=== PATIENT | female | born 1970 | race Caucasian/White ===

== ENCOUNTER → 2020-06-21 13:26 | Outpatient (CLI) | payer OTHER, SELFPAY ==
--- NOTE | ~2020-06-21 | MM_ITS ---
EXAMINATION: MM screening zahida BI w guy HISTORY: Screening TECHNIQUE: Craniocaudal and mediolateral oblique 3-D tomosynthesis images were obtained and synthetic 2-D images were generated. CAD analysis was submitted and interpreted. COMPARISON: Comparison to multiple prior studies sequentially, with oldest reviewed study dated 11/06. BREAST PARENCHYMAL COMPOSITION: There are scattered areas of fibroglandular density. FINDINGS: There is no evidence of suspicious mass, calcification, or architectural distortion to sugg est malignancy in either breast. There has been no suspicious interval change. IMPRESSION: 1. No mammographic evidence of malignancy. 2. Recommend routine screening mammography in one year. BI-RADS Category 1: Negative Reviewed, dictated and finalized at location A.
== END ==
PROVIDERS: PCP Family Medicine; Visit Provider Nurse Practitioner Obstetrics & Gynecology
DX: Z12.31 Encounter for screening mammogram for malignant neoplasm of breast (principal)
CPT/HCPCS: 77063; 77067

== ENCOUNTER → 2021-09-04 13:23 | Outpatient (CLI) | payer OTHER, SELFPAY ==
--- NOTE | ~2021-09-04 | MM_ITS ---
EXAMINATION: MM screening [facility] BI w guy HISTORY: Screening mammogram TECHNIQUE: Craniocaudal and mediolateral oblique 3-D tomosynthesis images were obtained and synthetic 2-D images were generated. CAD analysis was submitted and interpreted. COMPARISON: 06/21/2020, 05/04/2019, 12/30/2017 BREAST PARENCHYMAL COMPOSITION: There are scattered areas of fibroglandular density. FINDINGS: RIGHT BREAST: There is a possible mass in the middle third of the lower-outer breast best appreciated 7.5 cm from the nipple on the craniocaudal view. LEFT BREAST: There is no evidence of suspicious mass, calcification, or architectural distortion to s uggest malignancy. There has been no significant interval change. IMPRESSION: 1. Possible right breast mass 2. Additional mammographic views and possible breast ultrasound are recommended. BI-RADS Category 0: Incomplete: Needs additional imaging evaluation. Reviewed, dictated and finalized at location A. GORY DEVELOPMENT ANALYST IMPRESSION: 1. Possible right breast mass 2. Additional mammographic views and possible breast ultrasound are recommended . BI-RADS Category 0: Incomplete: Needs additional imaging evaluation.
--- NOTE | ~2021-09-04 | DEXA_ITS ---
Bone Density Report Name: FRANNY SERRANO Age: 51 Sex: Female Ethnicity: White Date of : 1970 Indication: postmenopausal; screening for osteoporosis; asthma or emphysema; hysterectomy; Referring Provider: Seth, Ciara Malloy Study: Bone densitometry was performed. Exam Date: September 04, 2021 Accession number: [id number] Bone Density: Region BMD T-score Z-score Classification AP Spine (L1-L4) 1.146 0.9 1.8 Normal Femoral Neck (Left) 1.080 2.1 3.0 Normal Total Hip (Left) 1.389 3.7 4.2 Normal Femoral Neck (Right) 1.139 2.6 3.5 Normal Total Hip (Right) 1.340 3.3 3.8 Normal Total Hip Mean 1.365 3.5 4.0 Normal World Health Organization criteria for BMD impression classify patients as: Normal (T-score at or above -1.0), Osteopenia (T-score between -1.0 and -2.5), or Osteoporosis (T-score at or below -2.5). 10-year Fracture Risk: FRAX not reported because: All T-scores for Spine Total, Hip Total, Femoral Neck at or above -1.0 Treated for osteoporosis Clinical Information Provided by Patient: Is being treated for osteoporosis Has the following medical conditions: Asthma or Emphysema, Hysterectomy Patient maximum height was 65 Menopause Age: 45 Onset of menses at age 12 Number of children 2 Impression: The patient has normal bone mass. Discussion: It is important to ask patients whether they are taking their medications and to encourage continued and appropriate compliance with their osteoporosis therapies to reduce fracture risk. It is also important to review their risk factors and encourage appropriate calcium and vitamin D intakes, exercise, fall prevention and other lifestyle measures. Follow-Up: Consider a repeat BMD and Vertebral Fracture Assessment (VFA) exam in 2 years or sooner if medically necessary, to reassess this patient's status. Reported by: [facility] on 09/04/2021 1:50:00 PM. Reviewed, dictated and finalized at location AOlivier LOPEZ
== END ==
PROVIDERS: PCP Family Medicine; Visit Provider Nurse Practitioner Obstetrics & Gynecology
DX: Z12.31 Encounter for screening mammogram for malignant neoplasm of breast (principal); R92.8 Other abnormal and inconclusive findings on diagnostic imaging of breast; Z78.0 Asymptomatic menopausal state
CPT/HCPCS: 77063; 77067; 77080

== ENCOUNTER → 2021-10-24 09:24 | Outpatient (CLI) | payer OTHER, SELFPAY ==
--- NOTE | ~2021-10-24 | MMUS_ITS ---
EXAMINATION: MM diagnostic zahida RT w guy, US breast RT limited HISTORY: Follow-up right breast asymmetry TECHNIQUE: Additional 3-D tomosynthesis images of the right breast were performed and synthetic 2-D i mages were generated. CAD analysis was submitted and interpreted. High resolution Limited right breas t ultrasound was performed. COMPARISON: Comparison to multiple prior studies sequentially, with oldest reviewed study dated 11/30/2015. BREAST PARENCHYMAL COMPOSITION: Breast composed of scattered areas of fibroglandular density FINDINGS: MAMMOGRAPHIC FINDINGS: ULTRASOUND: Complete bilateral US of all 4 quadrants of the right breast and retroareolar region was reviewed. No rmal heterogeneous echotexture without focal mass. IMPRESSION: 1. No evidence for malignancy in the right breast. 2. Routine yearly screening mammogram and regular clinical breast examination are recommended. BI-RADS Category 1: Negative Reviewed, dictated and finalized at location A. SPECIALIST IMPRESSION: 1. No evidence for malignancy in the right breast. 2. Routine yearly screening mammogram and regular clinical breast examination a re recommended. BI-RADS Category 1: Negative
== END ==
PROVIDERS: PCP Family Medicine; Visit Provider Nurse Practitioner Obstetrics & Gynecology
DX: R92.8 Other abnormal and inconclusive findings on diagnostic imaging of breast (principal)
CPT/HCPCS: 76642; 77061; 77065; G0279

== ENCOUNTER → 2023-01-15 11:58 | Outpatient (CLI) | payer OTHER, SELFPAY ==
--- NOTE | ~2023-01-15 | MM_ITS ---
EXAMINATION: MM screening [facility] BI w guy HISTORY: Screening mammogram TECHNIQUE: Craniocaudal and mediolateral oblique 3-D tomosynthesis images were obtained and synthetic 2-D images were generated. CAD analysis was submitted and interpreted. COMPARISON: 10/24/2021, 09/04/2021, 06/21/2020 BREAST PARENCHYMAL COMPOSITION: There are scattered areas of fibroglandular density. FINDINGS: No suspicious mass, calcification, or architectural distortion are identified in either blade ast to suggest malignancy. There has been no suspicious interval change. IMPRESSION: 1. No mammographic evidence of malignancy. 2. Recommend routine screening mammography in one year. BI-RADS Category 1: Negative Reviewed, dictated and finalized at location A.
== END ==
PROVIDERS: PCP Family Medicine; Visit Provider Nurse Practitioner Obstetrics & Gynecology
DX: Z12.31 Encounter for screening mammogram for malignant neoplasm of breast (principal)
CPT/HCPCS: 77063; 77067

== ENCOUNTER 2024-02-13 12:31 | Outpatient (CLI) | payer OTHER, SELFPAY ==
--- NOTE | ~2024-02-13 | MM_ITS ---
EXAMINATION: MM screening zahida BI w guy HISTORY: Screening TECHNIQUE: Craniocaudal and mediolateral oblique 3-D tomosynthesis images were obtained and synthetic 2-D images were generated. CAD analysis was submitted and interpreted. COMPARISON: Comparison to multiple prior studies sequentially, with oldest reviewed study dated 02/2020. BREAST PARENCHYMAL COMPOSITION: Not dense: There are scattered areas of fibroglandular density. FINDINGS: There is no evidence of suspicious mass, calcification, or architectural distortion to sugg est malignancy in either breast. There has been no suspicious interval change. IMPRESSION: 1. No mammographic evidence of malignancy. 2. Recommend routine screening mammography in one year. BI-RADS Category 1: Negative Reviewed, dictated and finalized at location B.
== END 2024-02-13 12:32 ==
LOC: MICIMG 12:32
PROVIDERS: PCP Nurse Practitioner Obstetrics & Gynecology; Visit Provider Nurse Practitioner Obstetrics & Gynecology
DX: Z12.31 Encounter for screening mammogram for malignant neoplasm of breast (principal)
CPT/HCPCS: 77063; 77067

== ENCOUNTER 2025-04-16 13:32 | Outpatient (CLI) | payer OTHER, SELFPAY ==
--- NOTE | ~2025-04-16 | MM_ITS ---
EXAMINATION: MM screening zahida BI w guy HISTORY: Screening TECHNIQUE: Craniocaudal and mediolateral oblique 3-D tomosynthesis images were obtained and synthetic 2-D images were generated. CAD analysis was submitted and interpreted. COMPARISON: Comparison to multiple prior studies sequentially, with oldest reviewed study dated 05/04. BREAST PARENCHYMAL COMPOSITION: Not dense: There are scattered areas of fibroglandular density. FINDINGS: There is no evidence of suspicious mass, calcification, or architectural distortion to sugg est malignancy in either breast. There has been no suspicious interval change. IMPRESSION: 1. No mammographic evidence of malignancy. 2. Recommend routine screening mammography in one year. BI-RADS Category 1: Negative Reviewed, dictated and finalized at location B.
== END 2025-04-16 13:33 | disposition home or self-care (01) ==
PROVIDERS: PCP Nurse Practitioner Family; Visit Provider Student in an Organized Health Care Education/Training Program
DX: Z12.31 Encounter for screening mammogram for malignant neoplasm of breast (principal)
CPT/HCPCS: 77063; 77067

== ENCOUNTER 2025-04-26 15:02 | Outpatient (CLI) | payer OTHER, SELFPAY ==
--- NOTE | ~2025-04-26 | XR_ITS ---
XR foot RT 2V 04/26/2025 15:51 Indication: Rheumatoid arthritis Procedure: 2 views right foot Comparison: No prior studies for comparison. Findings: Moderate osteoarthritis first MTP joint. Normal mineralization. No fracture, subluxation or dislocation. There are degenerative calcaneal enthesophytes. Impression: 1: Moderate osteoarthritis right first MTP joint. Reviewed, dictated and finalized at location A. Impression: 1: Moderate osteoarthritis right first MTP joint.
--- NOTE | ~2025-04-26 | XR_ITS ---
XR lumbar spine min 4V 04/26/2025 15:50 Indication: Rheumatoid arthritis Procedure: 5 views lumbar spine Comparison: No prior studies for comparison. Findings: Vertebral body heights are maintained. There is facet hypertrophy at L4-5 and L5-S1. There is grade 1 degenerative spondylolisthesis at L4-5. No acute fracture. There is facet hypertrophy at L 3-4, L4-5 and L5-S1. Impression: 1: Moderate lumbar spondylosis. Reviewed, dictated and finalized at location A. Impression: 1: Moderate lumbar spondylosis.
--- NOTE | ~2025-04-26 | XR_ITS ---
XR hand LT 2V 04/26/2025 15:51 Indication: Rheumatoid arthritis Procedure: 2 views left hand Comparison: 02/26/2014 Findings: There is polyarticular osteoarthritis, most advanced in the first carpometacarpal and fifth interphalangeal joints. No fracture, subluxation or erosion. No soft tissue abnormality. No foreign bodies. Impression: 1: Polyarticular osteoarthritis. Reviewed, dictated and finalized at location A. Impression: 1: Polyarticular osteoarthritis.
--- NOTE | ~2025-04-26 | XR_ITS ---
XR sacroiliac joints min 3V 04/26/2025 15:50 Indication: Rheumatoid arthritis Procedure: 3 view sacroiliac joints Comparison: No prior studies for comparison. Findings: Mild symmetric degenerative changes of the sacroiliac joints. No evidence for erosions or a nkylosis. Sacral foramen are symmetric. Impression: 1: Mild symmetric degenerative changes of the sacroiliac joints. Reviewed, dictated and finalized at location A. Impression: 1: Mild symmetric degenerative changes of the sacroiliac joints.
--- NOTE | ~2025-04-26 | XR_ITS ---
Exam: X-ray foot left 2 views TECHNIQUE: 2 images of the left foot were obtained. CLINICAL HISTORY: Rheumatoid arthritis COMPARISON: 04/12/2014 FINDINGS: Bone mineralization is within normal limits. No fracture. No dislocation. Mild joint space narrowing in the first metatarsophalangeal joint. Small plantar and posterior calcaneal spurs. Mild osteophytos is along the dorsum of the midfoot. IMPRESSION: 1. No acute bony abnormality. 2. Mild joint space narrowing in the first metatarsophalangeal joint. 3. Small plantar and posterior calcaneal spurs. Reviewed, dictated and finalized at location A.
--- NOTE | ~2025-04-26 | XR_ITS ---
XR hand RT 2V 04/26/2025 15:51 Indication: Rheumatoid arthritis Procedure: 2 views right hand Comparison: No prior studies for comparison. Findings: There is mild-moderate polyarticular osteoarthritis, most advanced at the first carpal meta carpal and fifth distal interphalangeal joints. No significant soft tissue abnormality. No foreign reshma dies. Impression: 1: Mild-moderate polyarticular osteoarthritis of the right hand. Reviewed, dictated and finalized at location A. Impression: 1: Mild-moderate polyarticular osteoarthritis of the right hand.
--- OUTSIDE RECORDS SUMMARY | 2025-04-26 15:16 | XMS_ITS | Encounter Summary ---
Author Organization [facility] Address [facility] [place] [address] Care Team Providers Care Physical Education Specialist Name Role Phone Robbie Reddy MD Primary Care Provider [phone] Encounter Details Date Type Department Care Team (Late st Contact Info) Description 02/19/2025 MEDOVENT Message Enc [facility] Medical Group Family Medicine - [place] [address] [place] [address] Robbie Reddy MD [facility] [place] [address] Phone call yesterday/ear problem Social History Tobacco Use Types Packs/Day Years Used Date Smoking Tobacco: Never Passive Smoke Exposure: Never Smokeless Tobacco: Never Alcohol Use Standard Drinks/Week Comments Not Currently 0 (1 standard drink = 0.6 oz pure alcohol) one mixed drink on my birthday maybe PHQ-2 Answer Date Recorded Patient Health Questionnaire-2 Score 0 02/10/2025 Comments No Sex and Gender Information Value Date Recorded Sex Assigned at Female 10/30/2024 12:07 PM FINANCIAL SERVICES REPRESENTATIVE Legal Sex Female 8:30 PM CDT Gender Identity Not on file Sexual Orientation Not on file documented as of this encounter Plan of Treatment Not on file documented as of this encounter Visit Diagnoses Not on filedocumented in this encounter Care Teams Physical Education Specialist Relationship Specialty Start Date End Date Robbie Reddy MD [address] [place] [address] [place] [address] PCP - General 07/26/24 documented as of this encounter
--- OUTSIDE RECORDS SUMMARY | 2025-04-26 15:16 | XMS_ITS | Encounter Summary ---
Author Organization [facility] Address [address] [place] [address] Care Team Providers Care Specialty Foods Cook Name Role Phone Jna De León MD Primary Care Provider [phone] Monica Love PA-C Primary Care Provider [phone] Robbie Reddy MD Primary Care Provider [phone] Encounter Details Date Type Department Care Team (Late st Contact Info) Description 10/30/2023 MyChart Message Enc [facility] Medical Group Family Medicine [address] [address] Jan De León MD [address] [place] [address] Hearing test consult Social History Tobacco Use Types Packs/Day Years Used Date Smoking Tobacco: Never Smokeless Tobacco: Never Alcohol Use Standard Drinks/Week Comments Not Currently 0 (1 standard drink = 0.6 oz pure alcohol) one mixed drink on my birthday maybe PHQ-2 Answer Date Recorded PHQ-2 Score - If the patient scores above 3, please move on to questions 3-9 0 06/21/2022 Comments No Sex and Gender Information Value Date Recorded Sex Assigned at Female 10/30/2024 12:07 PM PATCH DRILLER Legal Sex Female 8:30 PM CDT Gender Identity Not on file Sexual Orientation Not on file documented as of this encounter Progress Notes * Edith Oliver MA - 10/31/2023 12:01 PM CST Pt has already been seen by [facility] for ENT. She needs a 2nd opinion with an internal referral. Can you please send her referral to someone else. H DRILLER * Jan De León MD - 10/30/2023 7:55 PM CST The referral office made this referral in error. I requested an internal referral and designated it a second opinion referral meaning the referral should go to someone other than [facility]. Please contact the referral office to have this referral re-routed. H DRILLER * Jan De León MD - 10/30/2023 7:54 PM CSTFrom: Latosha Irizarry To: Dr. Jan De León Sent: 10/30/2023 10:23 AM PATCH DRILLER Subject: Hearing test consult Happy French's Day! The [facility] office called yesterday to schedule my hearing test, but that's who I went to before. Could you please suggest a different place so I can get a second opinion? Thanks! H DRILLER documented in this encounter Plan of Treatment Not on file documented as of this encounter Visit Diagnoses Not on filedocumented in this encounter Care Teams Specialty Foods Cook Relationship Specialty Start Date End Date Jan De León MD PCP - General 01/28/17 07/01/24 Monica Love PA-C [address] [place] [address] PCP - General PHYSICIAN AMUSEMENT CENTRE MANAGER 07/03/24 07/25/24 Robbie Reddy MD [address] [place] [address] PCP - General 07/26/24 documented as of this encounter
--- OUTSIDE RECORDS SUMMARY | 2025-04-26 15:16 | XMS_ITS | Encounter Summary ---
Author Organization [facility] Address [facility] [place] [address] Care Team Providers Care Real Time Operator Name Role Phone Robbie Reddy MD Primary Care Provider [phone] Encounter Details Date Type Department Care Team (Latest Contact Info) Description 04/25/2025 Scan HEALTH INFO SRVCS Scanned, Doc Med Group Social History Tobacco Use Types Packs/Day Years Used Date Smoking Tobacco: Never Passive Smoke Exposure: Never Smokeless Tobacco: Never Alcohol Use Standard Drinks/Week Comments Not Currently 0 (1 standard drink = 0.6 oz pure alcohol) one mixed drink on my birthday maybe PHQ-2 Answer Date Recorded Patient Health Questionnaire-2 Score 0 03/31/2025 Comments No Sex and Gender Information Value Date Recorded Sex Assigned at Female 10/30/2024 12:07 PM WEBLOGIC ADMINISTRATOR Legal Sex Female 8:30 PM CDT Gender Identity Not on file Sexual Orientation Not on file documented as of this encounter Plan of Treatment Not on file documented as of this encounter Visit Diagnoses Not on filedocumented in this encounter Care Teams Real Time Operator Relationship Specialty Start Date End Date Robbie Reddy MD [address] [place] [address] PCP - General 07/26/24 documented as of this encounter
--- OUTSIDE RECORDS SUMMARY | 2025-04-26 15:16 | XMS_ITS | Encounter Summary ---
Author Organization [facility] Address [address] [place] [address] Care Team Providers Care Melter Helper Name Role Phone Robbie Reddy MD Primary Care Provider [phone] Encounter Details Date Type Department Care Team (Late st Contact Info) Description 03/26/2025 Payveris Message Enc [facility] Medical Group Family Medicine - [place] [address] [place] [address] Robbie Reddy MD [address] [facility] [place] [address] FMLA paperwork Social History Tobacco Use Types Packs/Day Years Used Date Smoking Tobacco: Never Passive Smoke Exposure: Never Smokeless Tobacco: Never Alcohol Use Standard Drinks/Week Comments Not Currently 0 (1 standard drink = 0.6 oz pure alcohol) one mixed drink on my birthday maybe PHQ-2 Answer Date Recorded Patient Health Questionnaire-2 Score 0 03/16/2025 Comments No Sex and Gender Information Value Date Recorded Sex Assigned at Female 10/30/2024 12:07 PM QUALITY PROCESS ENGINEER Legal Sex Female 8:30 PM CDT Gender Identity Not on file Sexual Orientation Not on file documented as of this encounter Progress Notes * Edith Oliver MA - 03/29/2025 9:43 AM CDT Pt scheduled 03/31/25. documented in this encounter Plan of Treatment Not on file documented as of this encounter Visit Diagnoses Not on filedocumented in this encounter Care Teams Melter Helper Relationship Specialty Start Date End Date Robbie Reddy MD [address] [place] [phone] PCP - General 07/26/24 documented as of this encounter
--- OUTSIDE RECORDS SUMMARY | 2025-04-26 15:16 | XMS_ITS | Encounter Summary ---
Author Organization [facility] Address [facility] [place] [address] Care Team Providers Care Financial Project Manager Name Role Phone Robbie Reddy MD Primary Care Provider [phone] Encounter Details Date Type Department Care Team (Late st Contact Info) Description 04/26/2025 [employer] Message Enc [facility] Medical Group Family Medicine - [place] [address] [place] [address] Robbie Reddy MD [address] [place] [address] [place] [address] Insulin adjustment? Social History Tobacco Use Types Packs/Day Years [...] Sex Assigned at Female 10/30/2024 12:07 PM BREAKER BOSS Legal Sex Female 8:30 PM CDT Gender Identity Not on file Sexual Orientation Not on file documented as of this encounter Plan of Treatment Not on file documented as of this encounter Visit Diagnoses Not on filedocumented in this encounter Care Teams Financial Project Manager Relationship Specialty Start Date End Date Robbie Reddy MD [address] [place] [address] [place] [address] PCP - General 07/26/24 documented as of this encounter
--- OUTSIDE RECORDS SUMMARY | 2025-04-26 15:16 | XMS_ITS | Encounter Summary ---
Author Organization [facility] Address [address] [place] [address] Care Team Providers Care Recovery Room Nurse Name Role Phone Jan De León MD Primary Care Provider [phone] Monica Love PA-C Primary Care Provider [phone] Robbie Reddy MD Primary Care Provider [phone] Encounter Details Date Type Department Care Team (Late st Contact Info) Description 06/25/2023 StrategyEye Message Enc [facility] Medical Group Family Medicine [address] [address] [place] Provider Toenails Social History Tobacco Use Types Packs/Day Years [...] Sex Assigned at Female 10/30/2024 12:07 PM PIPE THREADER Legal Sex Female 8:30 PM CDT Gender Identity Not on file Sexual Orientation Not on file documented as of this encounter Plan of Treatment Not on file documented as of this encounter Visit Diagnoses Not on filedocumented in this encounter Care Teams Recovery Room Nurse Relationship Specialty Start Date End Date Jan De León MD PCP - General 01/28/17 07/01/24 Monica Love PA-C [address] [place] [address] PCP - General PHYSICIAN FLAT BED OPERATOR 07/03/24 07/25/24 Robbie Reddy MD [address] [facility] [place] [address] PCP - General 07/26/24 documented as of this encounter
--- OUTSIDE RECORDS SUMMARY | 2025-04-26 15:16 | XMS_ITS | Encounter Summary ---
Author Organization [facility] Address [facility] [place] [address] Care Team Providers Care Sports Medicine [place] Name Role Phone Robbie Reddy MD Primary Care Provider [phone] Encounter Details Date Type Department Care Team (Late st Contact Info) Description 04/26/2025 Materials [employer] Systems Research Message Enc [facility] Medical Group Family Medicine - [place] [address] [place] [address] Robbie Reddy MD [address] [place] [address] [place] [address] Breathing tx Social History Tobacco Use Types Packs/Day Years [...] Sex Assigned at Female 10/30/2024 12:07 PM OIL HOUSE ATTENDANT Legal Sex Female 8:30 PM CDT Gender Identity Not on file Sexual Orientation Not on file documented as of this encounter Plan of Treatment Not on file documented as of this encounter Visit Diagnoses Not on filedocumented in this encounter Care Teams Sports Medicine [place] Relationship Specialty Start Date End Date Robbie Reddy MD [address] [place] [address] [address] [place] [address] PCP - General 07/26/24 documented as of this encounter
--- OUTSIDE RECORDS SUMMARY | 2025-04-26 15:16 | XMS_ITS | Encounter Summary ---
Author Organization [facility] Address [address] [place] [address] Care Team Providers Care Calker Name Role Phone Jan De León MD Primary Care Provider [phone] Monica Love PA-C Primary Care Provider [phone] Robbie Reddy MD Primary Care Provider [phone] Encounter Details Date Type Department Care Team (Late st Contact Info) Description 07/04/2022 MyCWellntelt Message Enc [facility] Medical Group Diabetes and Endocrinology - [place] [address] [place] [address] [address] Blood Glucose Monitoring Record Social History Tobacco Use Types Packs/Day Years Used Date Smoking Tobacco: Never Smokeless Tobacco: Never Alcohol Use Standard Drinks/Week Comments Not Currently 0 (1 standard drink = 0.6 oz pure alcohol) one mixed drink on my birthday maybe PHQ-2 Answer Date Recorded PHQ-2 Score - If the patient scores above 3, please move on to questions 3-9 0 06/21/2022 Comments Unknown Sex and Gender Information Value Date Recorded Sex Assigned at Female 10/30/2024 12:07 PM LIME MIXER Legal Sex Female 8:30 PM CDT Gender Identity Not on file Sexual Orientation Not on file COVID-19 Exposure Response Date Recorded In the last 10 days, have jil u been in contact with someone who was confirmed or suspected to have Coronavirus/COVID-19? No / Unsure 06/27/2022 1:25 PM CDT documented as of this encounter Progress Notes * Hilary Armenta MA - 07/04/2022 3:40 PM CDT Pts BGM record documented in this encounter Plan of Treatment Not on file documented as of this encounter Visit Diagnoses Not on filedocumented in this encounter Care Teams Calker Relationship Specialty Start Date End Date Jan De León MD PCP - General 01/28/17 07/01/24 Monica Love, PAStefaniC [address] [place] [address] PCP - General PHYSICIAN EMERGENCY NURSE 07/03/24 07/25/24 Robbie Reddy MD [address] [facility] [place] [address] PCP - General 07/26/24 documented as of this encounter
--- OUTSIDE RECORDS SUMMARY | 2025-04-26 15:16 | XMS_ITS | Encounter Summary ---
Author Organization [facility] Address [address] [place] [address] Care Team Providers Care Note Taker Name Role Phone Jan De León MD Primary Care Provider [phone] Monica Love PA-C Primary Care Provider [phone] Robbie Reddy MD Primary Care Provider [phone] Encounter Details Date Type Department Care Team (Late st Contact Info) Description 09/11/2023 MyCmyGreekt Message Enc [facility] Medical Group Family Medicine [address] [address] Jan De León MD [address] [place] [phone] mounjaro and fenofibrate Social History Tobacco Use Types Packs/Day Years [...] Sex Assigned at Female 10/30/2024 12:07 PM 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
--- OUTSIDE RECORDS SUMMARY | 2025-04-26 15:16 | XMS_ITS | Encounter Summary ---
Author Organization [facility] Address [address] [place] [address] Care Team Providers Care Licensed Reactor Operator Name Role Phone Robbie Reddy MD Primary Care Provider [phone] Encounter Details Date Type Department Care Team (Late st Contact Info) Description 03/08/2025 Results Follow-Up [facility] Medical [facility] Family Medicine [facility] [address] [place] [address] Robbie Reddy MD [address] [facility] [place] [address] CBC W/DIFF AUTOMATED Social History Tobacco Use Types Packs/Day Years Used Date Smoking Tobacco: Never Passive Smoke Exposure: Never Smokeless Tobacco: Never Alcohol Use Standard Drinks/Week Comments Not Currently 0 (1 standard drink = 0.6 oz pure alcohol) one mixed drink on my birthday maybe PHQ-2 Answer Date Recorded Patient Health Questionnaire-2 Score 0 02/24/2025 Comments No Sex and Gender Information Value Date Recorded Sex Assigned at Female 10/30/2024 12:07 PM MANAGER OF SCHOOL Legal Sex Female 8:30 PM CDT Gender Identity Not on file Sexual Orientation Not on file documented as of this encounter Plan of Treatment Scheduled Orders Name Type Priority Associated Diagnoses Orde r Schedule CBC W/DIFF AUTOMATED Lab Routine Leukocytosis, unspecified type Expected: 03/08/2025, Expires: 03/08/2026 documented as of this encounter Visit Diagnoses Diagnosis Leukocytosis, unspecified type- Primary documented in this encounter Care Teams Licensed Reactor Operator Relationship Specialty Start Date End Date Robbie Reddy MD [address] [place] [address]. [place] [address] PCP - General 07/26/24 documented as of this encounter
--- OUTSIDE RECORDS SUMMARY | 2025-04-26 15:16 | XMS_ITS | Encounter Summary ---
Author Organization [facility] Address [address] [place] [address] Care Team Providers Care Test Consultant Name Role Phone Jan De León MD Primary Care Provider [phone] Monica Love PA-C Primary Care Provider [phone] Robbie Reddy MD Primary Care Provider [phone] Encounter Details Date Type Department Care Team (Late st Contact Info) Description 06/24/2023 MyChart Message Enc [facility] Medical Group Family Medicine [address] [address] Jan De León MD [address] [place] [address] Toe Nail Social History Tobacco Use Types Packs/Day Years [...] Sex Assigned at Female 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 Call wouldn't go through. [employer] message sent. * Jan De León MD - 06/25/2023 10:43 AM CDT I need to examine her but I am pretty sure I can manage this in our clinic. * Jan De León MD - 06/25/2023 10:43 AM CDTFrom: Latosha Irizarry To: Dr. Jan De León Sent: 06/24/2023 4:06 PM CDT Subject: Toe Nail Hi, I have an appointment with you on July 22 @ 1:00. I have mentioned before that my big toe toenails become ingrown. I've tried the various suggestions to get it to grown differently, but they don't work. My dad had toenails that literally grew inward so much, they practically met at the bottom and eventu ally had them completely removed. My pedicure person has been talking to me about having the outer edges of the nail removed back to the root and treating it so that it doesn't grow back. Is that something you can do? documented in this encounter Plan of Treatment Not on file documented as of this encounter Visit Diagnoses Not on filedocumented in this encounter Care Teams Test Consultant Relationship Specialty Start Date End Date Jan De León MD PCP - General 01/28/17 07/01/24 Monica Love PA-C [address] [place] [address] PCP - General PHYSICIAN MEDICAL RESIDENT 07/03/24 07/25/24 Robbie Reddy MD [facility] [facility] [place] [address] PCP - General 07/26/24 documented as of this encounter
--- OUTSIDE RECORDS SUMMARY | 2025-04-26 15:17 | XMS_ITS | Clinical Summary ---
Author Organization [address] Address [address] [place] [address] Care Team Providers Care Secretarial Teacher Name Role Phone Robbie Reddy MD Primary Care Provider [phone] Allergies Active Allergy Reactions Criticality Noted Date Comments Amoxicillin-Pot Clavulanate Nausea only Low 09/04/2016 Doxycycline Monohydrate Diarrhea,Stomach upset Low 07/10/2023 Sulfa (Sulfonamide Antibiotics) Rash,Itching Reaction: Rash, Itching, Medications cinnamon bark (Cinnamon) 500 mg capsule 4 capsules (2,000 mg total) Active vit C/zinc citrate/elderbe rry (ELDERBERRY IMMUNE HEALTH ORAL) Take 50 mg by mouth daily Active calcium carb/vit D3/minerals (CALTRATE 600+D PLUS MINERALS ORAL) Caltrate 600+D Plus Minerals Active omega 6-aff-uts-fish oil 1,000 (120-180) mg capsule 1 cap(s) orally 3 times a day (with meals) Active levocetirizine (XYZAL) 5 mg tablet 1 tab(s) orally once a day (in the evening); Duration: 30 day(s) 10/24/19 24 Active apple cider vinegar 600 mg capsule Take by mouth Active meclizine (ANTIVERT) 25 mg tablet Take 1 tablet (25 mg total) by mouth 3 (three) times a day as needed 03/18/20 25 Active insulin glargine (LANTUS) 100 unit/mL vial for injection 0 subcutaneously Active estradioL (Imvexxy Maintenance Pack) 10 mcg insert vaginal insert 12/21/19 22 Active lisinopriL (PRINIVIL,ZESTR IL) 2.5 mg tablet Take 1 tablet (2.5 mg total) by mouth daily Active albuterol HFA (PROVENTIL HFA,VENTOLIN HFA,PROAIR HFA) 90 mcg/actuation inhaler 08/26/[address] (ACIPHEX) 20 mg EC tablet Take 1 tablet (20 mg total) by mouth daily 02/12/20 25 Active Gemtesa 75 mg tablet 01/25/20 23 Active Mounjaro 7.5 mg/0.5 mL pen injector injection INJECT 7.5 MG INTO THE SKIN EVERY 7 DAYS. INDICATIONS: DIABETES 02/16/20 25 Active empagliflozin (Jardiance) 10 mg tablet Active azelastine (ASTELIN) 137 mcg (0.1 %) nasal spray 10/24/19 24 Active ascorbic acid (VITAMIN C) 100 mg tablet Take 1 tablet (100 mg total) by mouth daily Active lysine 500 mg tablet 1 tablet (500 mg total) Active UNABLE TO FIND HCL PRO-ZYME, ILLICIIUM SUPREME, COCCULUS INDICUS 30 Active hydroxychloroqu ine (PLAQUENIL) 200 mg tablet Take 2 tablets (400 mg total) by mouth daily 03/31/20 25 Active Active Problems Problem Noted Date Diagnosed Date Peripheral vertigo 03/31/2025 Assessment & Plan (03/31/2025 6:54 AM CDT): I suspect she probably has suffered labyrinthitis. Likely secondary to her shingles. Thankfully she has not lost any hearing with this. I am recommending that she stop the meclizine. I also recommended that she try to increase her activity as much as possible. This will help her recover more quickly. I am also going to have her schedule a VNG for further evaluation. She would like to go ahead and pursue that. Sensorineural hearing loss (SNHL) of both ears 0 03/31/2025 Assessment & Plan (03/31/2025 6:55 AM CDT): Her hearing loss is pretty mild. We talked about that. She does not notice any significant impairment. She currently is using hearing aids and is pretty happy with how they are working. I recommended continuing with the same. Type 2 diabetes mellitus 07/19/2015 Morbid obesity 07/19/2015 Hypertension 07/19/2015 Ketoacidosis 07/18/2015 Nocturia 07/18/2015 Unspecified dyspareunia (CODE) 07/18/2015 Acquired trigger finger 05/24/2014 Positive antinuclear antibody 05/24/2014 Encounters Date Type Department Care Team Description 04/22/2025 1:00 PM CDT Telemedicine [facility] Otolaryngology [address] [place] [phone] Rashard Chaparro MD Peripheral vertigo, unspecified laterality (Primary Dx) 04/08/2025 9:45 AM CDT Procedure visit [facility] Otolaryngology [address] [place] [phone] Bruna Toledo Au.D. Dizziness and giddiness (Primary Dx) 03/30/2025 10:30 AM CDT Office Visit [facility] Otolaryngology [address] [place] [phone] Rashard Chaparro MD Peripheral vertigo, unspecified laterality (Primary Dx); Sensorineural hearing loss (SNHL) of both ears 03/30/2025 10:00 AM CDT Procedure visit [facility] Otolaryngology [address] [place] [phone] Bruna Toledo Au.D. Dizziness and giddiness (Primary Dx); Sensorineural hearing loss (SNHL), bilateral 03/30/2025 Telephone [facility] Otolaryngology [address] [place] [phone] Bruna Toledo Au.D. from Last 3 Months Immunizations Immunization Administration Dates Next Due Influenza, Trivalent, Preservative Free, Intramu scular 09/16/2013 Surgical History Surgery Date Site/Laterality Comments SECTION Section - 2003,2004 (Added by TW Conv) UMBILICAL HERNIA REPAIR Umbilical Hernia Repair - 2014 (Added by BATSHEVA Conv) HYSTERECTOMY INCONTINENCE SURGERY Medical History Medical History Date Comments Ear problems Dizziness Allergies Asthma Autoimmune disease Rheumatoid arthritis (HCC) Diabetes (HCC) Hypertension GERD (gastroesophageal reflux disease) Sinusitis HL (hearing loss) Headache Sleep apnea Family History Medical History Relation Name Comments Hypertension Brother Hypertension - (Added by Conv) Cancer Father Cancer - (Added by Conv) Hypertension Father Hypertension - (Added by Conv) Diabetes type II Maternal Grandmother Typ e 2 Diabetes Mellitus - (Added by TW Conv) Arthritis Mother Family history of arthritis - (Added by Conv) Diabetes type II Other Type 2 Diab etes Mellitus - Relation: Uncle (Added by Conv) Heart disease Other Heart Disease - Relation: Uncle (Added by Conv) Cancer Paternal Grandfather Cancer - (Added by TW Conv) Heart disease Paternal Grandmother Heart Disease - (Added by Conv) Hypertension Paternal Grandmother Hyperte nsion - (Added by Conv) Stroke Paternal Grandmother Stroke Syndrome - (Added by Conv) Relation Name Status Comments Brother Father Maternal Grandmother Mother Other Paternal Grandfather Paternal Grandmother Social History Tobacco Use Types Packs/Day Years Used Date Smoking Tobacco: Never Smokeless Tobacco: Never Tobacco Cessation:Counseling Given: Not Answered Comments Unknown Sex and Gender Information Value Date Recorded Sex Assigned at Not on file 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 Gender Identity Not on file Sexual Orientation Not on file Obstetrics History Last Filed Vital Signs Vital Sign Reading Time Taken Comments Blood Pressure 140/85 07/04/2019 6:34 PM CDT Pulse 103 07/04/2019 6:34 PM CDT Temperature 36.6 C (97.9 F) 07/04/2019 6:34 PM CDT Respiratory Rate 17 03/30/2025 10:10 AM CDT Oxygen Saturation 97% 07/04/2019 6:34 PM CDT Inhaled Oxygen Concentration - - Weight 104.3 kg (230 lb) 04/22/2025 11:13 AM CDT Height 165.1 cm (5' 5) 04/22/2025 11:13 AM CDT Body Mass Index 38.27 04/22/2025 11:13 AM CDT Plan of Treatment Health Maintenance Due Date Last Done Comments Albumin Creatinine Ratio, Urine 1970 Breast Cancer Screening-Mammogram 1970 Colon Cancer Screening-Colonoscopy 1970 Depression Screening 1970 Hemoglobin A1C 1969 Hepatitis C Screening 1970 eGFR 1969 Dilated Eye Exam 1969 Foot Exam 1969 Regular Well Visit/Exam 18-64 1987 Zoster Vaccine (1 of 2) 1988 Pneumococcal vaccine <65 (2 of 2 - PCV) 02/27/2017 02/28/2016 Covid-19 Vaccine (3 - Modern a risk series) 05/08/2022 04/10/2022, 01/13/2021, 12/16/2020 Influenza Vaccine (#1) 2025 2, 09/23/2019, 09/03/2018, Additional history exists Lipid Panel 11/02/2025 11/02/2024, 04/07/2018 DTaP/Tdap/Td Vaccine (2 - Td or Tdap) 02/27/2026 02/28/2016 Hepatitis B Screening Completed 09/16/1999 Procedures Procedure Name Priority Date/Time Associated Diagnosis Comments TNI WITH LIPID PANEL Routine 04/07/2018 3:51 PM CDT from Last 3 Months or Most Recently Relevant to Health Maintenance Results * (ABNORMAL) TNI with LIPID PANEL (04/07/2018 3:51 PM CDT) Troponin I < 0.300 0.000 - 0.300 ng/mL 04/07/2018 4:20 PM T [facility] HISTORICAL RESULTS Comment: Reference using UZMA Chemiluminescence Negative: Repeat in 4-6 hours as indicated. Triglycerides 338(H) 0 - 149 mg/dL 04/07/2018 4:26 PM T [facility] HISTORICAL RESULTS Comment: LDL(measured) to follow due to Triglycerides >250 mg/dL. National Lipid Association/NCEP Guidelines: Normal < 150 mg/dL Borderline high 150-199 mg/dL High 200-499 mg/dL Very High >=500 mg/dL Cholesterol 175 0 - 199 mg/dL 04/07/2018 4:26 PM T [facility] HISTORICAL RESULTS Comment: National Lipid Association/NCEP Guidelines: Desirable < 200 mg/dL Borderline high: 200-239 mg/dL High Risk: >=240 mg/dL HDL Cholesterol 37 mg/dL 8 4:26 PM T [facility] HISTORICAL RESULTS Comment: Reference Ranges: Males: >=40 mg/dL Females: >=50 mg/dL Cholesterol/HDL Ratio 4.7 04/07/2018 4:26 PM CDT [facility] HISTORICAL RESULTS Comment: Optimal < 3.5:1 High > 5:1 04/07/2018 3:51 PM CDT 04/07/2018 3:56 PM CDT Ana Luisa Polanco HANDCREW FOREMAN LAB BLOOD ORDERABLES Final R esult [facility] HISTORICAL RESULTS from Last 3 Months or Most Recently Relevant to Health Maintenance Insurance [employer] [place] PPO Care Teams Secretarial Teacher Relationship Specialty Start Date End Date Robbie Reddy MD [address] [place] [address] [place] [address] PCP - General Family Medicine 03/12/25
--- OUTSIDE RECORDS SUMMARY | 2025-04-26 15:17 | XMS_ITS ---
Author Organization [facility] [facility] [employer] [place] ([address]) Address [address] [place] [address] Care Team Providers Care Spinner Continuous Name Role Phone Jan De León Primary Care Provider Unava ilable Brandi Yeh Unavailable [phone] Jaimee Babcock Unavailable [phone] REASON FOR VISIT ARC follow-up Encounters Encounter Location Date Provider Diagnosis [address] [place] [address] 12/30/2023 Jaimee Babcock Plan Of Treatment No Information Progress Notes * Latosha IRIZARRY LDOB:[birth year] (54 yo F)Acc No.[id number]:12/30/2023 Progress Notes Patient: Latosha KAUR Provider: Albino Babcock MD :1970 A ge:53 Y S ex:Female Date:12/30/2023 Address:[address], [place] Pcp:Jan De León Subjective: * Chief Complaints: * 1 . ARC follow-up. * Medical History: Objective: * Vitals: Assessment: Plan: * Treatment: * Billing Information: * Visit Code: * Procedure Codes: * Electronic signature of Anju Babcock MD on 04/26/2025 at 03:16 PM CDT Sign off status: Pending * Provider: Albino Babcock MD Date: 0 12/30/2023 Generated for Abraham lang/Rajan/Jayant on: 0 04/26/2025 03:16 PM CDT
--- OUTSIDE RECORDS SUMMARY | 2025-04-26 15:17 | XMS_ITS | Patient Health Record ---
Author Organization [employer] [facility] [employer] ([address]) Address [address] [place] [address] Care Team Providers Care Air Twist Operator Name Role Phone Jan De León Primary Care Provider Unava ilable Brandi Yeh Unavailable [phone] Allergies Allergen (clinical drug ingredient) Drug/Non Drug Allergy documented on EMR Reaction Allergy Type Onset Date Status DOXYCYLINE-MONO (uncoded) gi upset Allergy Active Substance with sulfonamide structure and antibacterial mechanism of action (substance) SULFA (uncoded) behavioral/men riddhi Allergy Active Substance with sulfonamide structure and antibacterial mechanism of action (substance) SULFA (uncoded) Hives Allergy Active amoxicillin Amoxicillin nausea Drug Allergy Act omar sulfamethoxazole / trimethoprim Bactrim Elevated heart rate Drug Allergy Active Reason For Referral No Information Medications Medication SIG (Take, Route, Frequency, Duration) Notes Start Date End Date Status RABEprazole Sodium 20 MG 1 tab(s) orally once a day Active PROAIR HFA 90 MCG/INH 2 PUFF(S) INHALED EVERY 6 HOURS *Please review for potential replacement for e-prescription and drug interaction check* Active Mounjaro 10 MG/0.5 ML DIRECTED SUBCUTANEOUSLY ONCE A WEEK *Please review and pick correct strength-formulat ion from [employer]pan options. If intended option is not shown, discontinue and re-order from Quick Search* Active Gemtesa 75 MG 1 tab(s) orally once a day Active VITAMIN C Active OMEGA-3 1000 mg 1 cap(s) orally 3 times a day (with meals) Active Elderberry *Please review and pick correct strength-formulat ion from [employer] options. If intended option is not shown, discontinue and re-order from Quick Search* Active Cinnamon *Please review and pick correct strength-formulat ion from [employer] options. If intended option is not shown, discontinue and re-order from Quick Search* Active Imvexxy Maintenance Pack 10 MCG 1 INS intravaginally 2 times a week Active Jardiance 10 MG 1 tab(s) orally once a day (in the morning) Active Azelastine HCl 137 MCG/SPRAY 2 spray(s) intranasally 2 times a day Active Fenofibrate 54 MG 1 tab(s) orally once a day Active CALTRATE 600 + D Act omar GEMTESA 75 mg 1 tab(s) orally once a day Active MOUNJARO 10 mg/0.5 mL as directed subcutaneously once a week Active AZELASTINE NASAL 137 mcg/inh 2 spray(s) intranasally 2 times a day; Duration: 30 day(s) 10/24/2023 Active JARDIANCE 10 mg 1 tab(s) orally once a day (in the morning) Active LEVOCETIRIZINE 5 mg 1 tab(s) orally once a day (in the evening); Duration: 30 day(s) 10/24/2023 Active IMVEXXY MAINTENANCE PACK 10 mcg 1 INS intravaginally 2 times a week Active FENOFIBRATE 54 mg 1 tab(s) orally once a day Active AZELASTINE NASAL 137 mcg/inh 2 spray(s) intranasally 2 times a day Active ALBUTEROL 90 mcg/inh 1 puff(s) inhaled 4 times a day; Duration: 30 day(s) 10/24/2023 Active CINNAMON Active ELDERBERRY Active Albuterol Sulfate 90 MCG/INH 1 PUFF(S) INHALED 4 TIMES A DAY; Duration: 30 DAY(S) *Please review and pick correct strength-formulat ion from [employer] options. If intended option is not shown, discontinue and re-order from Quick Search* 10/24/2023 Active Stuart-3 1000 MG 1 cap(s) orally 3 times a day (with meals) Active Vitamin C *Please review and pick correct strength-formulat ion from [employer] options. If intended option is not shown, discontinue and re-order from Quick Search* Active COLLAGENASE TOPICAL *Please revi ew for potential replacement for e-prescription and drug interaction check* Active Caltrate 600+D Plus Minerals *Please review and pick correct strength-formulat ion from [employer] options. If intended option is not shown, discontinue and re-order from Quick Search* Active RABEPRAZOLE 20 mg 1 tab(s) orally once a day Active Estradiol 0.5 MG/0.5 G (0.1%) 1 EA TRANSDERMALLY ONCE A DAY *Please review and pick correct strength-formulat ion from [employer] options. If intended option is not shown, discontinue and re-order from Quick Search* Active Lantus 100 UNIT/ML 0 subcutaneously 60 units Active Lisinopril 5 MG 1 tab(s) orally once a day Active Levocetirizine Dihydrochloride 5 MG 1 tab(s) orally once a day (in the evening); Duration: 30 day(s) 10/24/2023 Active Azelastine HCl 137 MCG/SPRAY 2 spray(s) intranasally 2 times a day; Duration: 30 day(s) 10/24/2023 Active LISINOPRIL 5 mg 1 tab(s) orally once a day Active LANTUS 100 units/mL 0 subcutaneously 60 units Active ESTRADIOL 0.5 mg/0.5 g (0.1%) 1 ea transdermally once a day Active Immunizations Vaccine Route Administration Date Status Comme nts NOC Pneumovax 23 Unknown 02/28/2016 Administered Portal Information NOC Tdap Unknown 02/28/2016 Administered Portal Infor mukesh Social History Tobacco Use: Social History Observation Description Date Details (start date - stop date) Never Smoker NA - NA Smoking Smart Form: Question Answer Notes Are you a: never smoker Problems Problem Type SNOMED Code ICD Code Onset Dates Problem Status W/U Status Risk Notes Problem Chronic allergic conjunctivitis (75811365) Chronic allergic conjunctivitis NOS (372.14) Active confirmed Problem Allergic rhinitis due to allergen (35276191) Allergic rhinitis due to allergen (477.8) Active confirmed Problem Chronic sinusitis (74812644) Chronic sinusitis NOS (473.9) Active confirmed Problem Wheezing (51176055) Wheezing (786.07) Active confirmed Problem Allergy to sulfonamides (33365000) HX-SULFONAMIDES ALLERGY (V14.2) Active confirmed Problem Allergic rhinitis caused by pollen (disorder) (62874400) Allergic rhinitis due to pollen (J30.1) Active confirmed Problem Allergic rhinitis caused by animal hair and dander (719319409776466) Allergic rhinitis due to animal (cat) (dog) hair and dander (J30.81) Active confirmed Problem Allergic rhinitis (73637501) Other allergic rhinitis (J30.89) Active confirmed Problem Chronic sinusitis (21898284) Chronic sinusitis, unspecified (J32.9) Active confirmed Problem Mild intermittent asthma (785181155) Mild intermittent asthma, uncomplicated (J45.20) Active confirmed Problem Chronic allergic conjunctivitis (74373461) Other chronic allergic conjunctivitis (H10.45) Active confirmed Plan Of Treatment Pending Test Test Name Order Date TETANUS ANTITOXOID ANTIBODY (EIA) 2023 HAEMOPHILUS INFLUENZAE B ANTIBODY, IGG 0 10/24/2023 Insurance Providers Payer Name Payer Address Payer Phone Subscriber Number Group Number Insured Name Patient Relationship to Insured Coverage Start Date Coverage End Date A[employer] Choice POS II [address] [place] [address] [id number] Amadou Irizarry Spouse - patient is the spouse of the insured 2 Medical (General) History Medical History History ICD Code Allergic rhinitis and conjun ctivitis - s/p immunotherapy in late 80s/early Intermittent wheezing Recurrent sinusitis/bronchitis Diabetes mellitus GERD Surgical History Surgery Date(Month/Year) C - Section 2003 & 2004 C section 02/26/2004 C section 02/23/2005 Celestine teeth extracted 1988 Ear tubes 1977 hysterectomy 01/24/2016 bladder tie up 01/24/2016 T&A 1976 Hospitalization History Reason Date(Month/Year) See surgical history
--- OUTSIDE RECORDS SUMMARY | 2025-04-26 15:17 | XMS_ITS | Encounter Summary ---
Author Organization [facility] Address [facility] [place] [address] Care Team Providers Care Operator Name Role Phone Robbie Reddy MD Primary Care Provider [phone] Encounter Details Date Type Department Care Team (Late st Contact Info) Description 11/03/2024 pMDsoft Message Enc [facility] Medical [facility] Family Medicine - [place] [address] [place] [address] Robbie Reddy MD [address] [place] [address] 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 [place] [phone] PCP - General 07/26/24 documented as of this encounter
--- OUTSIDE RECORDS SUMMARY | 2025-04-26 15:17 | XMS_ITS ---
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 Name Role Phone Jan De León Primary Care Provider Unava ilable Brandi Yeh Unavailable [phone] [facility], Provider Unavailable Unavailab le Allergies Allergen (clinical drug ingredient) Drug/Non Drug Allergy documented on EMR Reaction Allergy Type Onset Date Status DOXYCYLINE-MONO (uncoded) gi upset Allergy Active Substance with sulfonamide structure and antibacterial mechanism of action (substance) SULFA (uncoded) Hives Allergy Active amoxicillin Amoxicillin nausea Drug Allergy Act omar sulfamethoxazole / trimethoprim Bactrim Elevated heart rate Drug Allergy Active REASON FOR VISIT [facility] Encounter Medications Medication SIG (Take, Route, Frequency, Duration) Notes Start Date End Date Status Albuterol Sulfate 90 MCG/INH 1 PUFF(S) INHALED 4 TIMES A DAY; Duration: 30 DAY(S) *Please review and pick correct strength-formulat ion from [employer] options. If intended option is not shown, discontinue and re-order from Quick Search* 10/24/2023 Active Estradiol 0.5 MG/0.5 G (0.1%) 1 EA TRANSDERMALLY ONCE A DAY *Please review and pick correct strength-formulat ion from [employer] options. If intended option is not shown, discontinue and re-order from Quick Search* Active Lantus 100 UNIT/ML 0 subcutaneously 60 units Active Levocetirizine Dihydrochloride 5 MG 1 tab(s) orally once a day (in the evening); Duration: 30 day(s) 10/24/2023 Active Azelastine HCl 137 MCG/SPRAY 2 spray(s) intranasally 2 times a day; Duration: 30 day(s) 10/24/2023 Active RABEprazole Sodium 20 MG 1 tab(s) orally once a day Active PROAIR HFA 90 MCG/INH 2 PUFF(S) INHALED EVERY 6 HOURS *Please review for potential replacement for e-prescription and drug interaction check* Active Mounjaro 10 MG/0.5 ML DIRECTED SUBCUTANEOUSLY ONCE A WEEK *Please review and pick correct strength-formulat ion from [employer] options. If intended option is not shown, discontinue and re-order from Quick Search* Active Gemtesa 75 MG 1 tab(s) orally once a day Active Lisinopril 5 MG 1 tab(s) orally once a day Active Cinnamon *Please review and pick correct strength-formulat ion from [employer] options. If intended option is not shown, discontinue and re-order from Quick Search* Active Imvexxy Maintenance Pack 10 MCG 1 INS intravaginally 2 times a week Active Jardiance 10 MG 1 tab(s) orally once a day (in the morning) Active Azelastine HCl 137 MCG/SPRAY 2 spray(s) intranasally 2 times a day Active Fenofibrate 54 MG 1 tab(s) orally once a day Active Wolcott-3 1000 MG 1 cap(s) orally 3 times a day (with meals) Active Vitamin C *Please review and pick correct strength-formulat ion from [employer] options. If intended option is not shown, discontinue and re-order from Quick Search* Active COLLAGENASE TOPICAL *Please revi ew for potential replacement for e-prescription and drug interaction check* Active Caltrate 600+D Plus Minerals *Please review and pick correct strength-formulat ion from [employer] options. If intended option is not shown, discontinue and re-order from Quick Search* Active Elderberry *Please review and pick correct strength-formulat ion from [employer] options. If intended option is not shown, discontinue and re-order from Quick Search* Active Encounters Encounter Location Date Provider Diagnosis [facility] - [facility] [place] [address] 02/29/2024 Provider ZZ-Migration Allergic rhinitis due to pollen J30.1 and Mild intermittent asthma, uncomplicated J45.20 Assessments Encounter Date Diagnosis (ICD Code) Assessment Notes Treatment Notes Treatment Clinical Notes Section Notes 02/29/2024 Allergic rhinitis due to pollen (ICD-10 - J30.1) 02/29/2024 Mild intermittent asthma, uncomplicated (ICD-10 - J45.20) Plan Of Treatment Medication Medication Name Sig Start Date Stop Date Notes Albuterol Sulfate 90 MCG/INH 1 PUFF(S) INHALED 4 TIMES A DAY; Duration: 30 DAY(S) 10/24/2023 *Please review and pick correct strength-formulatio n from [employer] options. If intended option is not shown, discontinue and re-order from Quick Search* Levocetirizine Dihydrochloride 5 MG 1 tab(s) orally once a day (in the evening); Duration: 30 day(s) 10/24/2023 Azelastine HCl 137 MCG/SPRAY 2 spray(s) intranasally 2 times a day; Duration: 30 day(s) 10/24/2023 Progress Notes * Bailey IRIZARRY LDOB:[birth year] (54 yo F)Acc No.[id number]:02/29/2024 Patient: Bailey KAUR Provider: Gama Carr :1970 A ge:53 Y S ex:Female Date:02/29/2024 [id number] Pcp:Jan De León Subjective: * Chief Complaints: * 1 . [facility] En[facility]. * Medical History: * Medications: T aking COLLAGENASE TOPICAL , Notes to Pharmacist: *Please review for potential replacement for e-prescription and drug interaction check*, Taking Wolcott-3 1000 MG Capsule 1 cap(s) orally 3 times a day (with meals) , Taking Vitamin C , Notes to Pharmacist: *Please review and pick correct strength-formulation from [employer] options. If intended option is not shown, discontinue and re-order from Quick Search*, Taking Caltrate 600+D Plus Minerals , Notes to Pharmacist: *Please review and pick correct strength-formulation from [employer] options. If intended option is not shown, discontinue and re-order from Quick Search*, Taking Elderberry , Notes to Pharmacist: *Please review and pick correct strength-formulation from [employer] options. If intended option is not shown, discontinue and re-order from Quick Search*, Taking Cinnamon , Notes to Pharmacist: *Please review and pick correct strength-formulation from [employer] options. If intended option is not shown, discontinue and re-order from Quick Search*, Taking Azelastine HCl 137 MCG/SPRAY Solution 2 spray(s) intranasally 2 times a day , Taking Fenofibrate 54 MG Tablet 1 tab(s) orally once a day , Taking Imvexxy Maintenance Pack 10 MCG Insert 1 INS intravaginally 2 times a week , Taking Jardiance 10 MG Tablet 1 tab(s) orally once a day (in the morning) , Taking Mounjaro 10 MG/0.5 ML SOLUTION DIRECTED SUBCUTANEOUSLY ONCE A WEEK , Notes to Pharmacist: *Please review and pick correct strength-formulation from [employer] options. If intended option is not shown, discontinue and re-order from Quick Search*, Taking Gemtesa 75 MG Tablet 1 tab(s) orally once a day , Taking RABEprazole Sodium 20 MG Tablet Delayed Release 1 tab(s) orally once a day , Taking PROAIR HFA 90 MCG/INH AEROSOL 2 PUFF(S) INHALED EVERY 6 HOURS , Notes to Pharmacist: *Please review for potential replacement for e-prescription and drug interaction check*, Taking Lisinopril 5 MG Tablet 1 tab(s) orally once a day , Taking Estradiol 0.5 MG/0.5 G (0.1%) GEL 1 EA TRANSDERMALLY ONCE A DAY , Notes to Pharmacist: *Please review and pick correct strength- formulation from [employer] options. If intended option is not shown, discontinue and re-order from Quick Search*, Taking Lantus 100 UNIT/ML Solution 0 subcutaneously , Notes to Pharmacist: 60 units * Allergies: S ULFA: Hives - Allergy, Bactrim: Elevated heart rate - Side Effects, DOXYCYLINE- MONO: gi upset, Amoxicillin: nausea. Objective: * Vitals: Assessment: * Assessment: 1. A llergic rhinitis due to pollen - J30.1 2 . M ild intermittent asthma, uncomplicated - J45.20 Plan: * Treatment: 2. M ild intermittent asthma, uncomplicated Start Albuterol Sulfate AEROSOL WITH ADAPTER, 90 MCG/INH, 1 PUFF(S), INHALED, 4 TIMES A DAY, 30 DAY(S), Notes to Pharmacist: *Please review and pick correct strength-formulation from [employer] options. If intended option is not shown, discontinue and re-order from Quick Search*. * Billing Information: * Visit Code: * Procedure Codes: * Electronic signature of Jared SETH-Migration on 04/26/2025 at 03:17 PM CDT Sign off status: Pending * Provider: Gama an Migration Date: 0 02/29/2024 Generated for Abraham lang/Rajan/Markitting on: 0 04/26/2025 03:17 PM CDT
--- OUTSIDE RECORDS SUMMARY | 2025-04-26 15:17 | XMS_ITS | Clinical Summary ---
Author Organization [facility] Address [address] [place] [address] Care Team Providers Care Hr Internship Name Role Phone Robbie Reddy MD Primary Care Provider [phone] Allergies Active Allergy Reactions Criticality Noted Date Comments Amoxicillin-Pot Clavulanate Nausea Only Low 09/04/2016 Doxycycline Monohydrate Diarrhea,GI Upset Low 07/10 Statins GI Upset Medium 07/27/2024 Sulfa Antibiotics Other (see comment) Low 2 Affects her mentally. Sulfamethoxazole-Trimet hoprim Tachycardia 02/10/2025 Medications estradiol 0.5 MG tablet Take 2 tablets (1 mg total) by mouth daily. 016 Active NAPROXEN 500 MG tabletIndications: Meralgia paresthetica, bilateral lower limbs TAKE 1 TABLET EVERY 12 HOURS NEEDED FOR HEADACHE 60 tablet 3 019 Active ULTRATRAK PRO TEST test strip USE 2 STRIPS DAILY 020 Active Estradiol (IMVEXXY MAINTENANCE PACK) 10 MCG INSERT 022 Active Misc Natural Products (APPLE CIDER VINEGAR DIET OR) 1877 mg take 3 tablets daily Active GEMTESA 75 MG tablet 023 Active nystatin-triamcino lone (MYCOLOG) ointment as needed. Active PROAIR HFA 108 (90 Base) MCG/ACT inhalerIndications :Allergic rhinitis INHALE TWO PUFFS BY MOUTH 4 TIMES A DAY NEEDED 8.5 g 023 Active AZELASTINE 137 MCG/SPRAY nasal sprayIndications:A llergic rhinitis with postnasal drip USE 1 SPRAY IN EACH NOSTRILTWICE DAILY DIRECTED 30 mL 2 024 Active Ascorbic Acid (VITAMIN C) 100 MG tablet Take 1 tablet (100 mg total) by mouth daily. Dose unknown Active Calcium Carbonate-Vit D-Min (CALCIUM 1200 OR) Take 1 tablet by mouth daily. Dose unknown Active Levocetirizine Dihydrochloride (XYZAL ALLERGY 24HR OR) Take 1 tablet by mouth daily. Active fluocinonide (LIDEX) 0.05 % external solutionIndication s:Acute eczematoid otitis externa of right ear Apply topically 2 (two) times daily. 20 mL 1 024 Active Cinnamon 500 MG capsule Cinnamon Active Elderberry 500 MG Cap Elderberry Active fish oil (OMEGA-3 FATTY ACID) 1000 MG Cap capsule 1 cap(s) orally 3 times a day (with meals) Active lisinopril (PRINIVIL) 2.5 MG tabletIndications: Essential hypertension Take 1 tablet (2.5 mg total) by mouth every evening. 90 tablet 3 024 Active Prodigy Twist Top Lancets 28G MiscIndications:Ty pe 2 diabetes mellitus with hyperglycemia, with long-term current use of insulin ([facility] HHS/[facility]) 1 Lancet by Does not apply route 2 (two) times a day. 100 each 5 024 Active Glucose Blood test stripIndications:T ype 2 diabetes mellitus with hyperglycemia, with long-term current use of insulin ([facility] HHS/HCC) 1 strip by Other route 2 (two) times a day. Use as instructed 200 strip 5 024 Active acyclovir (ZOVIRAX) 5 % creamIndications:H erpes Use 1/2 inch ribbon of ointment per 4 square inches of surface area 5 g 3 025 Active Turmeric 5-1000 MG Cap Active insulin glargine (LANTUS SOLOSTAR) 100 UNIT/ML injection (PEN)Indications:T ype 2 diabetes mellitus with hyperglycemia, with long-term current use of insulin ([facility] HHS/HCC) Inject 22 Units into the skin 2 (two) times daily. 15 mL 2 025 Active empagliflozin (JARDIANCE) 25 MG tabletIndications: Type 2 diabetes mellitus with hyperglycemia, with long-term current use of insulin ([facility]) Take 1 tablet (25 mg total) by mouth daily. 90 tablet 3 025 Active Insulin Pen Needle (BD PEN NEEDLE ANTONIO 2ND GEN) 32G X 4 MM MiscIndications:Ty pe 2 diabetes mellitus with hyperglycemia, with long-term current use of insulin ([facility]) Use to inject insulin BID. 100 each 3 025 Active ezetimibe (ZETIA) 10 MG tabletIndications: Dyslipidemia Take 1 tablet (10 mg total) by mouth daily. 90 tablet 3 025 Active tirzepatide (MOUNJARO) 7.5 MG/0.5ML injectionIndicatio ns:Type 2 diabetes mellitus with hyperglycemia, with long-term current use of insulin ([facility]) INJECT 7.5 MG INTO THE SKIN ONCE A WEEK. INDICATIONS: DIABETES 2 mL 2 025 Active ondansetron (ZOFRAN) 4 MG tabletIndications: Gastroesophageal reflux disease, unspecified whether esophagitis present Take 1 tablet (4 mg total) by mouth every 8 (eight) hours as needed for Nausea. 20 tablet 3 025 Active fluconazole (DIFLUCAN) 150 MG tabletIndications: Yeast vaginitis Take 1 tablet q72h x 2 doses. 2 tablet 025 Active RABEprazole EC (ACIPHEX) 20 MG tabletIndications: Gastroesophageal reflux disease, unspecified whether esophagitis present TAKE 1 TABLET DAILY 90 tablet 025 Active fluconazole (DIFLUCAN) 150 MG tabletIndications: Yeast vaginitis Take 1 tablet q72h x 2 doses. 2 tablet 025 2024 Discontinued(R eorder) RABEprazole EC (ACIPHEX) 20 MG tabletIndications: Gastroesophageal reflux disease, unspecified whether esophagitis present Take 1 tablet (20 mg total) by mouth daily. 30 tablet 2 025 2024 Discontinued methylPREDNISolone , HEYDI, (MEDROL DOSEPAK) 4 MG tabletIndications: Postherpetic neuralgia 6 TABLETS ON DAY ONE, 5 TABLETS DAY TWO, 4 TABLETS DAY THREE, 3 TABLETS DAY FOUR, 2 TABLETS DAY FIVE, AND 1 TABLET DAY SIX 1 each 025 2024 Discontinued meclizine (ANTIVERT) 25 MG tabletIndications: Vertigo TAKE 1 TABLET (25 MG TOTAL) BY MOUTH 3 (THREE) TIMES DAILY NEEDED FOR NAUSEA OR DIZZINESS. 30 tablet 1 025 2024 Discontinued azithromycin (ZITHROMAX) 250 MG tabletIndications: Sinus congestion Take 2 tablets on day #1, then 1 tablet daily x 4 days. 6 tablet 025 2024 valACYclovir (VALTREX) 1 g tabletIndications: Herpes zoster without complication Take 1 tablet (1,000 mg total) by mouth 3 (three) times daily for 7 days. 21 tablet 025 2024 predniSONE (DELTASONE) 20 MG tabletIndications: Herpes zoster without complication Take 2 tablets (40 mg total) by mouth daily for 5 days. 10 tablet 025 2024 Active Problems Problem Noted Date Diagnosed Date Sinus congestion 03/31/2025 Acute otitis media, unspecified otitis media typ e 02/24/2025 Postherpetic neuralgia 02/11/2025 Vertigo 02/11/2025 Herpes zoster without complication 02/10/2025 Yeast vaginitis 11/24/2024 Leukocytosis, unspecified type 11/02/2024 Positive colorectal cancer screening using Colog uard test 08/18/2024 Ingrowing toenail 01/21/2024 Joint pain 12/26/2022 Atrophic vulva 12/20/2021 Mixed stress and urge urinary incontinence 03/03 Type 2 diabetes mellitus wit h hyperglycemia, with long-term current use of insulin (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 Overview (05/09/2023): Benign neoplasm of vulva;Recorded Elsewhere: No Location: [facility] Source: EHR Chronic: N Practice ID: [id number] Billable Time: 01:45:00 PM Essential hypertension 06/18/2017 Class 3 severe obesity due t o excess calories with serious comorbidity and body mass index (BMI) of 40.0 to 44.9 in adult 01/08/2017 Menopause present 03/06/2016 Overview (05/09/2023): vasomotor sx;Recorded Elsewhere: No Location: [facility] Source: EHR Chronic: N Practice ID: [id number] Billable Time: 01:45:00 PM Polyp of corpus uteri 11/22/2015 Overview (05/09/2023): Polyp of corpus uteri;Practice ID: [id number] Unspecified dyspareunia (CODE) 07/18/2015 ADRIENNE (obstructive sleep apnea) 07/07/2015 Overview (09/03/2018): Transitioned From: Snoring Insomnia 03/07/2015 Vitamin D deficiency 02/22/2015 Acquired trigger finger 05/24/2014 Positive antinuclear antibody 05/24/2014 Overactive bladder 02/26/2014 Dyslipidemia 08/31/2013 Allergic rhinitis with postnasal drip 08/28/2013 Esophageal reflux 08/28/2013 Resolved Problems Problem Noted Date Diagnosed Date Resolved Date Statin intolerance 03/03/2021 Acute vulvitis 01/29/2018 12/05/2023 Overview (05/09/2023): Vulvitis;Recorded Elsewhere: No Location: [facility] Source: EHR Chronic: N Practice ID: [id number] Billable Time: 02:30:00 PM Pain of female genitalia 11/02/2015 Overview (05/09/2023): Dysmenorrhea, unspecified;Recorded Elsewhere: No Location: [facility] Source: EHR Chronic: N Practice ID: [id number] Billable Time: 11:00:00 AM test negative 11/02/2013 03/2 09/2023 Overview (05/09/2023): examination or test, negative result;Recorded Elsewhere: No Location: [facility] Source: EHR Chronic: N Practice ID: [id number] Billable Time: 11:15:00 AM Encounters Date Type Department Care Team Description 04/26/2025 MyChart Message Enc [address] [address] Robbie Reddy MD Breathing tx 04/26/2025 MyChart Message Enc [address] [address] Robbie Reddy MD Insulin adjustment? 04/25/2025 Scan [facility] Scanned, [facility] 04/05/2025 MyChart Message Enc [address] [address] Robbie Reddy MD return of shingles? 04/01/2025 Scan [facility] Scanned, [facility] 03/31/2025 9:40 AM CDT Office Visit [address] [address] Robbie Reddy MD Other (FMLA paperwork) 03/31/2025 Scan [facility] Scanned, [facility] 03/31/2025 Travel 03/26/2025 MyChart Message Enc [address] [address] Robbie Reddy MD FMLA paperwork 03/16/2025 1:20 PM CDT Office Visit [address] [address] Jessi Henry MD Sinus Problem 03/16/2025 Travel 03/15/2025 Scan [facility] Scanned, [facility] 03/08/2025 2:00 PM CDT Laboratory Only [address] [address] Robbie Reddy MD 03/08/2025 Results Follow-Up [address] [address] Robbie Reddy MD CBC W/DIFF AUTOMATED 03/08/2025 Travel 03/01/2025 MyChart Message Enc [address] [address] Robbie Reddy MD RA flare up 02/24/2025 11:40 AM CDT Office Visit [address] [address] Robbie Reddy MD Dizziness (Starting February 05.); Earache (bilateral) 02/24/2025 Travel 02/19/2025 MyChart Message Enc [address] [address] Robbie Reddy MD Phone call yesterday/ear problem 02/18/2025 Scan [facility] Scanned, [facility] 02/18/[address] [address] Robbie Reddy MD Question 02/11/2025 MyChart Message Enc [address] [address] Robbie Reddy MD vertigo 02/11/[address] [address] Robbie Reddy MD Dizziness 02/10/2025 10:00 AM CDT Office Visit [address] [place] [address] Robbie Reddy MD Diabetes; Hypertension 02/10/2025 Travel 02/05/2025 11:55 AM CDT - 02/05/2025 12:44 PM CDT Hospital Encounter [facility] [address] [place] [address] Miya Goodwin DO Skin Problem; Dizziness Discharge Disposition: Home or Self Care (Routine Discharge) 02/05/2025 Travel 02/05/2025 Telephone [facility] - [place] [address] [place] [address] Robbie Reddy MD Information from Last 3 Months Immunizations Immunization Administration Dates Next Due Fluzone 6 Months+ Quad (0.5 mL Prefilled Syringe) 06/27/2022,09/23/2019,09/03/2018 Hepatitis B (Generic: Adult) 09/16/1999 Influenza (Generic) 09/16/2013 Influenza Adult (Generic) 09/03/2018,10/22/2017, 05/30/2016 MODERNA COVID-19 (12+) MRNA, LNP-S, PF, 100 MCG/ 0.5 ML DOSE 01/13/2021,12/16/2020 MODERNA COVID-19 (PRECISION GRINDER EXTERNAL ZAINA JIMMY), MRNA, LNP-S, PF, 50 MCG/ 0.25 ML DOSE 04/10/2022 Pneumococcal (Pneumovax 23) 02/28/2016 Tdap (Boostrix) 02/28/2016 Family History Medical History Relation Comments Hypertension Brother 1 Hypertension Brother 2 Cancer Father Mantel Cell Lymp wendi/Thyroid Diabetes Father Follicular Thyroid Carcinoma Father Not medullary. Able to take GLP-1 Thyroid Father Arthritis Maternal Grandmother Diabetes Maternal Grandmother Diabetes Maternal Uncle 1 Diabetes Maternal Uncle 2 Diabetes Maternal Uncle 3 Diabetes Maternal Uncle 4 Heart Disease Maternal Uncle 5 Diabetes Maternal Uncle 6 Heart Disease Maternal Uncle 7 Hypertension Maternal Uncle 8 Arthritis Mother Asthma Mother Miscarriages / Stillbirths Mother Cancer Paternal Grandfather prostate Early Paternal Grandmother stroke Stroke Paternal Grandmother Relation Status Comments Brother 1 Brother 2 Alive Father Maternal Grandmother Alive Maternal Uncle 1 Maternal Uncle 2 Maternal Uncle 3 Maternal Uncle 4 Maternal Uncle 5 Maternal Uncle 6 Alive Maternal Uncle 7 Alive Maternal Uncle 8 Alive Mother Alive Paternal Grandfather Alive Paternal Grandmother Alive Social History Tobacco Use Types Packs/Day Years Used Date Smoking Tobacco: Never Passive Smoke Exposure: Never Smokeless Tobacco: Never Tobacco Cessation:Counseling Given: Yes Alcohol Use Standard Drinks/Week Comments Not Currently 0 (1 standard drink = 0.6 oz pure alcohol) one mixed drink on my birthday maybe PHQ-2 Answer Date Recorded Patient Health Questionnaire-2 Score 0 03/31/2025 Comments No Sex and Gender Information Value Date Recorded Sex Assigned at Female 10/30/2024 12:07 PM CORPORATE WELLNESS COORDINATOR Legal Sex Female 8:30 PM CDT Gender Identity Not on file Sexual Orientation Not on file Last Filed Vital Signs Vital Sign Reading Time Taken Comments Blood Pressure 138/80 03/31/2025 9:38 AM CDT Pulse 76 03/31/2025 9:38 AM CDT Temperature 36.5 C (97.7 F) 03/31/2025 9:38 AM CDT Respiratory Rate 18 03/31/2025 9:38 AM CDT Oxygen Saturation 96% 03/31/2025 9:38 AM CDT Inhaled Oxygen Concentration - - Weight 105.2 kg (232 lb) 03/31/2025 9:38 AM CDT Height 165.1 cm (5' 5) 02/24/2025 11:46 AM CDT Body Mass Index 38.61 02/24/2025 11:46 AM CDT Plan of Treatment Health Maintenance Due Date Last Done Comments Zoster Vaccines (1 of 2) 1988 Pneumococcal Vaccine: 50+ Years (2 of 2 - PCV) 02/27/2017 02/28/2016 Annual Physical 07/27/2025 07/27/2024, 02/2023, 03/27/2022, Additional history exists COVID-19 Vaccine ( season) 2025 04/10/2022, 01/13/2021, 12/16/2020 Postponed from 05/17/2024 (Patient Refused) Hepatitis B Vaccines (2 of 3 - 19+ 3-dose series) 07/27/2025 09/16/1999 Postponed from 10/14/1999 (Patient/Guardian Refusal) Hemoglobin A1C 08/13/2025 02/10/2025, 10/18, 07/27/2024, Additional history exists Kidney Health Evaluation 11/02/2025 11/02/2024 Lipid Panel 11/02/2025 11/02/2024, 0312/2023, 10/18/2023, Additional history exists Diabetes: Retinopathy Eye Exam 12/02/2025 12/02/2024, 11/27/2023, 11/21/2022, Additional history exists Mammogram Screening 02/12/2026 02/13/2024, 02/13/2024, 01/15/2023, Additional history exists DTaP, Tdap and Td Vaccines (2 - Td or Tdap) 02/27/2026 02/28/2016 Colorectal Cancer Screening Colonoscopy (10 Years) 01/13/2030 01/13/2025 Hepatitis C Completed 10/27/2020 Colorectal Cancer Screening FIT-DNA (3 Years) Discontinued 08/05/2024, 08/05/2024 PHQ-2 ([place]) Completed 03/31/2025 Meningococcal B Vaccine Aged Out No l onger eligible based on patient's age to complete this topic Meningococcal Vaccine Aged Out No julia cuate eligible based on patient's age to complete this topic RSV Immunizations Under 20 Months Aged Out No longer eligible based on patient's age to complete this topic Procedures Procedure Name Priority Date/Time Associated Diagnosis Comments CBC W/DIFF AUTOMATED Routine 03/08/2025 1:57 PM CDT Neutrophilia COLLECTION VENOUS BLOOD VENIPUNCTURE Routine 03/08/2025 Neutrophilia COLLECT.CAPILLARY (FNGR,HEEL,EAR) Routine 02/10/2025 10:19 AM CDT Type 2 diabetes mellitus with hyperglycemia, with long-term current use of insulin ([facility]) HEMOGLOBIN, GLYCOSYLATED Routine 02/10/2025 Type 2 diabetes mellitus with hyperglycemia, with long-term current use of insulin ([facility]) ECG 12-LEAD STAT 02/05/2025 12:27 PM CDT DIABETIC RETINOPATHY EXAM (NEGATIVE)(SCAN ORDER) Routine 12/02/2024 LIPID PANEL Routine 11/02/2024 11:01 AM CORPORATE WELLNESS COORDINATOR Dyslipidemia COLOGUARD (EXACT SCIENCE) Routine 08/05/2024 9:44 AM CORPORATE WELLNESS COORDINATOR Screening for malignant neoplasm of colon MAMMOGRAM GENERIC (SCAN ORDER) 02/13/2024 HEPATITIS C ANTIBODY W/RFX TO HCV RNA Routine 10/27/2020 10:01 AM CORPORATE WELLNESS COORDINATOR Need for hepatitis C screening test from Last 3 Months or Most Recently Relevant to Health Maintenance Results * (ABNORMAL) CBC W/DIFF AUTOMATED (03/08/2025 1:57 PM CDT) WBC 12.26(H) 4.00 - 10.80 x10'3/uL 03/08/2025 8:07 PM CDT [facility] RBC 5.18 4.10 - 5.40 x10'6/uL 03/08/2025 8:07 PM CDT [facility] HGB 15.9 12.0 - 16.0 G/DL 03/08/2025 8:07 PM CDT [facility] HCT 45.4 36.0 - 47.0 % 03/08/2025 8:07 PM CDT [facility] MCV 87.6 78.0 - 100.0 FL 03/08/2025 8:07 PM CDT [facility] MCH 30.7 27.0 - 31.0 PG 03/08/2025 8:07 PM CDT [facility] MCHC 35.0 33.0 - 36.0 G/DL 03/08/2025 8:07 PM CDT [facility] RDW 11.9 11.5 - 14.5 % 03/08/2025 8:07 PM CDT [facility] PLT 257 150 - 350 x10'3/uL 03/08/2025 8:07 PM CDT [facility] MPV 9.7 7.4 - 10.4 FL 03/08/2025 8:07 PM CDT [facility] DIFFERENTIAL TYPE AUTOMATED DIFFERENTIAL 03/08/2025 8:07 PM CDT [facility] NEUTROPHILS % 67.7 % 03/08/2025 8:07 PM CDT [facility] LYMPHOCYTES % 24.4 % 03/08/2025 8:07 PM CDT [facility] MONOCYTES % 6.4 % 03/08/2025 8:07 PM CDT [facility] EOSINOPHILS % 0.9 % 03/08/2025 8:07 PM CDT [facility] BASOPHILS % 0.4 % 03/08/2025 8:07 PM CDT [facility] IMMATURE GRANS % 0.2 % 03/08/2025 8:07 PM CDT [facility] ABS. NEUTROPHILS 8.30 1.60 - 8.30 x10'3/uL 03/08/2025 8:07 PM CDT [facility] ABS. LYMPHOCYTES 2.99 0.80 - 4.70 x10'3/uL 03/08/2025 8:07 PM CDT [facility] ABS. MONOCYTES 0.79 0.00 - 1.50 x10'3/uL 03/08/2025 8:07 PM CDT [facility] ABS. EOSINOPHILS 0.11 0.00 - 0.40 x10'3/uL 03/08/2025 8:07 PM CDT [facility] ABS. BASOPHILS 0.05 0.00 - 0.20 x10'3/uL 03/08/2025 8:07 PM CDT [facility] ABS. IMMATURE GRANULOCYTES 0.02 0.00 - 0.03 x10'3/uL 03/08/2025 8:07 PM CDT [facility] 03/08/2025 1:57 PM CDT us Robbie Reddy MD LABORATORY Final Result [facility] [place] [address] [place] [address], [place] [phone] * COLLECTION VENOUS BLOOD VENIPUNCTURE (03/08/2025) us Robbie Reddy MD PROCEDURES Final Result * (ABNORMAL) HEMOGLOBIN, GLYCOSYLATED (02/10/2025) HGB A1C 7.1(A) % [facility] 02/10/2025 us Robbie Reddy MD LABORATORY Final Result Performing Organization Address City/[facility] Co de Phone Number [facility] [address] [place] [address], [place] [phone] * ECG 12 lead (02/05/2025 12:27 PM CDT) 02/05/2025 12:2 7 PM CDT Narrative [facility] ([facility]) RAD - 02/05/2025 6:50 PM [address] Test Date: 2025-02-05 Pat Name: FRANNY IRIZARRY Department: 41 Room: [place] [address] 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1970 Requested By: MIYA GOODWIN Order Number: [id number] Reading MD: Dennis Simmons Measurements Intervals [place] Rate: 70 P: -7 MT: 134 QRS: 26 QRSD: 90 T: 39 QT: 374 QTc: 406 Interpretive Statements SINUS RHYTHM No previous ECG available for comparison Procedure Note Dennis Simmons MD - 02/05/2025 [address] Test Date: 2025-02-05 Pat Name: FRANNY IRIZARRY Department: 41 Room: [place] [address] 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1970 Requested By: MIYA GOODWIN Order Number: [id number] Reading MD: Dennis Simmons Measurements Intervals [place] Rate: 70 P: -7 MT: 134 QRS: 26 QRSD: 90 T: 39 QT: 374 QTc: 406 Interpretive Statements SINUS RHYTHM No previous ECG available for comparison us Miya Goodwin DO ECG ORDERABLES Final Result Performing Organization Address City/[facility]/ZIP Co de Phone Number [facility] ([place]) RAD * DIABETIC RETINOPATHY EXAM (NEGATIVE) (12/02/2024) us [facility] Scanned SCANNING Final Resu lt Performing Organization Address City/State/[facility] Co de Phone Number HS ONBASE * (ABNORMAL) LIPID PANEL (11/02/2024 11:01 AM CORPORATE WELLNESS COORDINATOR) CHOLESTEROL 201(H) <200 MG/DL 11/03/2024 11:[address] [facility] [place] TRIGLYCERIDES 167(H) <150 MG/DL 11/03/2024 11:01 AM CORPORATE WELLNESS COORDINATOR [facility] [place] HDL 46 >40 MG/DL 11/03/2024 11:01 AM CORPORATE WELLNESS COORDINATOR [facility] [place], [place] LDL-C 122(H) <100 MG/DL 11/03/2024 11:01 AM CORPORATE WELLNESS COORDINATOR [facility] [place] [place] VLDL CALCULATION 33(H) 5 - 28 MG/DL 11/03/2024 11:01 AM [facility] CHOL/HDL RATIO 4.4(H) 0.0 - 4.0 11/03/2024 11:01 AM [facility] [place] LDL/HDL 2.7(H) 0.41 - 2.13 11/03/2024 11:01 AM CORPORATE WELLNESS COORDINATOR [facility] [place] NON HDL CHOLESTEROL 155(H) <140 MG/DL 11/03/2024 11:01 AM CORPORATE WELLNESS COORDINATOR [facility] [place] 11/02/2024 11:0 1 AM CORPORATE WELLNESS COORDINATOR Robbie Reddy MD LABORATORY Final Result [facility] [address] [place] [address], * (ABNORMAL) COLOGUARD (EXACT SCIENCE) (08/05/2024 9:44 AM CORPORATE WELLNESS COORDINATOR) COLOGUARD RESULT Positive( A) Negative Envis (CLIA #:[id number]) Comment: POSITIVE TEST RESULT. A positive Cologuard result should be followed with a colonoscopy or visual examination of the colon. The normal value (reference range) for this assay is negative. TEST DESCRIPTION: Composite algorithmic analysis of stool DNA-biomarkers with hemoglobin immunoassay. Quantitative values of individual biomarkers are not reportable and are not associated with individual biomarker result reference ranges. Cologuard is intended for colorectal cancer screening of adults of either sex, 45 years or older, who are at average-risk for colorectal cancer (CRC). Cologuard has been approved for use by the U.S. FDA. The performance of Cologuard was established in a cross sectional study of average-risk adults aged 50-84. Cologuard performance in patients ages 45 to 49 years was estimated by sub-group analysis of near-age groups. Colonoscopies performed for a positive result may find as the most clinically significant lesion: colorectal cancer [4.0%], advanced adenoma (including sessile serrated polyps greater than or equal to 1cm diameter) [20%] or non- advanced adenoma [31%]; or no colorectal neoplasia [45%]. These estimates are derived from a prospective cross-sectional screening study of 10,000 individuals at average risk for colorectal cancer who were screened with both Cologuard and colonoscopy. (Shonda Valerio al, N Engl J Med 2014;370(14):9200-1290.) Cologuard may produce a false negative or false positive result (no colorectal cancer or precancerous polyp present at colonoscopy follow up). A negative Cologuard test result does not guarantee the absence of CRC or advanced adenoma (pre-cancer). The current Cologuard screening interval is every 3 years. ([place] [employer] and U.S. Multi-Society Task Force). Cologuard performance data in a 10,000 patient pivotal study using colonoscopy as the reference method can be accessed at the following location: www.[email or web address].AwayFind/results. Additional description of the Cologuard test process, warnings and precautions can be found at www.[email or web address].com. STOOL STOOL SPECIMEN / Unknown 08/05/2024 9:44 AM CORPORATE WELLNESS COORDINATOR 08/07/2024 10:32 AM CORPORATE WELLNESS COORDINATOR Robbie Reddy MD BODY FLUIDS AND STOOLS ORDERAB LES Final Result Cued ([employer] [address]) [address] [place] [place] [address], [facility] (CLIA #:[id number]) [address] [place] [place] [address] * MAMMOGRAM GENERIC (SCAN ORDER) (02/13/2024) Anatomical Region Laterality Modality Other 02/13/2024 [facility] Scanned SCANNING Final Resu lt * HEPATITIS C ANTIBODY W/RFX TO HCV RNA ([facility] ONLY) (10/27/2020 10:01 AM CORPORATE WELLNESS COORDINATOR) HEPATITIS C AB NON-REACTI VE NON-REACT SOHA [facility] SIGNAL TO CUTOFF 0.03 <[address] [facility] Comment: HCV antibody was non-reactive. There is no laboratory evidence of HCV infection. In most cases, no further action is required. However, if recent HCV exposure is suspected, a test for HCV RNA (test code 02691) is suggested. For additional information please refer to http://education.Puuilo.AwayFind/faq/VNX50w8 (This link is being provided for informational/ educational purposes only.) 10/27/2020 10:0 1 AM CORPORATE WELLNESS COORDINATOR 10/28/2020 3:44 AM CORPORATE WELLNESS COORDINATOR us Jan De León MD LABORATORY Final Res ult [facility] [address] [place] [address] from Last 3 Months or Most Recently Relevant to Health Maintenance Insurance [place] [id number] [employer] Care Teams Hr Internship Relationship Specialty Start Date End Date Robbie Reddy MD [address] [place], [place] [address] [id number] PCP - General 07/26/24
--- OUTSIDE RECORDS SUMMARY | 2025-04-26 15:17 | XMS_ITS | Encounter Summary ---
Author Organization [facility] Address [address] [place] [address] Care Team Providers Care Trencher Driver Name Role Phone Robbie Reddy MD Primary Care Provider [phone] Encounter Details Date Type Department Care Team (Latest Contact Info) Description 11/11/2024 [employer] Message Enc [facility] Multispecialty [facility] - [facility] [address], [address] [place] [address] [employer], [facility] Provider Scheduling Colonoscopy Social History Tobacco Use Types Packs/Day Years Used Date Smoking Tobacco: Never Passive Smoke Exposure: Never Smokeless Tobacco: Never Alcohol Use Standard Drinks/Week Comments Not Currently 0 (1 standard drink = 0.6 oz pure alcohol) one mixed drink on my birthday maybe PHQ-2 Answer Date Recorded Patient Health Questionnaire-2 Score 0 11/12/2024 Comments No Sex and Gender Information Value Date Recorded Sex Assigned at Female 10/30/2024 12:07 PM [employer] Sex Female 8:30 PM CDT Gender Identity Not on file Sexual Orientation Not on file documented as of this encounter Functional Status * Over the past 2 weeks, how often have you been bothered by any of the following problems? Question Answer Date of Assessment Author Status Little interest or pleasure in doing things Not at all 11/12/2024 10:41 AM [employer] Armin Sarkar MA Active Feeling down, depressed, or hopeless Not at all 11/12/2024 10:41 AM Anand Gunn MA Active Patient Health Questionnaire-2 Score 0 11/12/2024 10:41 AM Shahid Gunn MA Active * If you checked off any problems on this questionnaire so far, Question Answer Date of Assessment Author Status How difficult have these problems made it for you to do your work, take care of things at home, or get along with other people? Not difficult at all 11/12/2024 10:41 AM Armin Gunn MA Active documented as of this encounter Plan of Treatment Not on file documented as of this encounter Visit Diagnoses Not on filedocumented in this encounter Care Teams Trencher Driver Relationship Specialty Start Date End Date Robbie Reddy MD [address] [place] [address]. [place] [address] PCP - General 07/26/24 documented as of this encounter
[2025-04-26 15:39] LABS: Hematocrit 43.1 % (37.0-47.0); Hemoglobin 15.2 g/dL (12.0-15.0); Immature Platelet Fraction Pct 4.2 % (0.9-11.2); Mean Corpuscular HGB Conc 35.3 g/dl (32-36); Mean Corpuscular Hemoglobin 31.5 pg (26-34); Mean Corpuscular Volume 89.2 fl (80-100); Platelet Count Result 225 k/mm3 (150-375); Red Blood Count 4.83 M/mm3 (4.2-5.4); White Blood Count 8.8 K/mm3 (4.5-10.0)
[2025-04-26 15:43] LABS: Add Urine Microscopic? NO; Appearance Urine Clear (Clear); Glucose Urine UA 3+ mg/dL (Negative); Leukocyte Esterase Ur Negative LEU/UL (Negative); Nitrate Urine Negative (Negative); Specific Grav Ur 1.034 (1.001-1.035)
[2025-04-26 16:06] LABS: Albumin Level 4.3 g/dL (3.5-5.1); Anion Gap 9 mmol/L (4-12); Blood Urea Nitrogen 14 mg/dL (7-17); CRP 0.9 mg/dL (<1.0); Calcium 9.6 mg/dL (8.4-10.2); Carbon Dioxide 25 mmol/L (22-30); Chloride 99 mmol/L (98-107); Estimated Glomerular Filt Rate > 60; Glucose 181 mg/dL (65-110); Potassium 4.6 mmol/L (3.4-5.0); Sodium 133 mmol/L (137-145); Uric Acid 4.9 mg/dL (2.5-7.5)
[2025-04-26 16:32] LABS: Lymphocytes Absolute Manual 2.11 K/mm3 (1.1-4.5); Lymphocytes Percent Manual 24.0 % (18-44); Monocytes Absolute Manual 0.79 K/mm3 (0.1-0.90); Monocytes Percent Manual 9 % (3-9); Neutrophils Percent Manual 67 % (46-73); Schistocytes None Seen; Total Cells Counted 100
[2025-04-26 16:33] LABS: Thyroid Stimulating Hormone 1.080 uIU/mL (0.465-4.680)
[2025-04-26 17:10] LABS: Hepatitis B Surface Antigen Negative (Negative)
[2025-04-26 17:16] LABS: HAV RESULT Negative (Negative); Hepatitis B Core IgM Result Negative (Negative)
[2025-04-26 17:19] LABS: Band Neutrophils Percent 0 % (0-6); Neutrophils Absolute Manual 5.89 K/mm3 (1.3-6.7)
[2025-04-26 17:28] LABS: Hepatitis B Surface Anti Res Negative
[2025-04-27 12:08] LABS: Anti-CCP Ab, IgG/IgA 20 units (0-19)
[2025-04-27 14:08] LABS: ANA by IFA Rfx Titer/Pattern Positive (.)
== END 2025-04-26 15:03 | disposition home or self-care (01) ==
PROVIDERS: PCP Nurse Practitioner Family; Visit Provider Internal Medicine
DX: M47.896 Other spondylosis, lumbar region (principal); M19.041 Primary osteoarthritis, right hand; M19.042 Primary osteoarthritis, left hand; M19.071 Primary osteoarthritis, right ankle and foot; M53.3 Sacrococcygeal disorders, not elsewhere classified; M77.32 Calcaneal spur, left foot
CPT/HCPCS: 36415; 72110; 72202; 73120; 73620; 80069; 80074; 81003; 84443; 84550; 85025; 85055; 85652; 86038; 86140; 86200; 86235; 86430; 86480; 86706